=== PATIENT | female | born 1950 | race Caucasian/White ===

== ENCOUNTER 2017-01-12 09:00 | Day surgery (SDC) | payer MEDICARE, OTHER ==
[~2017-01-12 09:00] MED LIST: SODIUM CHLORIDE 0.9% 1,000 ML IV ONE
[2017-01-12] MEDS ORDERED: VANCOMYCIN HCL 1 GM/D5% WATER 200 ML IV ONE (09:30)
[2017-01-12] MEDS ORDERED: SODIUM CHLORIDE 0.9% 1,000 ML IV ONE ×2 (09:30→14:26)
[2017-01-12] MEDS ORDERED: LORazepam 2 MG/ML VIAL IVP PRN (09:30)
[2017-01-12] MEDS ORDERED: FentaNYL CITRATE-PF 100 MCG/2 ML VIAL ONE (12:32)
[2017-01-12] MEDS ORDERED: MIDAZOLAM HCL 2 MG/2 ML VIAL ONE (12:32)
[2017-01-12] MEDS ORDERED: LIDOCAINE HCL/PF 1% 30 ML VIAL ONE (12:35)
[2017-01-12] MEDS ORDERED: MIDAZOLAM HCL 2 MG/2 ML VIAL IVP ONE (12:47)
[2017-01-12] MEDS ORDERED: FentaNYL CITRATE-PF 100 MCG/2 ML VIAL IVP ONE (12:58)
[2017-01-12] MEDS ORDERED: SODIUM CHLORIDE 0.9% 1,000 ML IV SCH (13:38)
[2017-01-12] MEDS ORDERED: OxyCODONE HCL/ACETAMINOPHEN 5-325 MG TABLET PO PRN ×2 (13:45)
[2017-01-12] MEDS ORDERED: HYDROmorphone 2 MG/ML SYRINGE IVP PRN (13:45)
[2017-01-12] MEDS ORDERED: HYDROmorphone HCL 2 MG TABLET PO ONE (13:45)
[2017-01-12] MEDS ORDERED: HYDROmorphone HCL 2 MG TABLET ONE (13:57)
[2017-01-12] MEDS ORDERED: HYDROmorphone 2 MG/ML SYRINGE ONE (14:02)
[2017-01-12] MEDS ORDERED: 0.9% SODIUM CHLORIDE 10 ML SYRINGE IVP ONE (14:12)
== END 2017-01-12 16:00 | disposition home or self-care (01) ==
LOC: SURGERY 09:00 → EDSTATUS 09:30 → SURGERY 16:00
PROVIDERS: ATTEND Radiology Diagnostic Radiology
DX: C50.912 Malignant neoplasm of unspecified site of left female breast (principal); Z88.1 Allergy status to other antibiotic agents; Z72.89 Other problems related to lifestyle; Z98.890 Other specified postprocedural states; Z96.659 Presence of unspecified artificial knee joint
CPT/HCPCS: 19105; 99152; 99153; C2618; J1170; J2250; J3010; J3370; J3490; J7030